=== PATIENT | male | born 1980 | race Caucasian/White ===

== ENCOUNTER 2020-02-01 11:46 | Emergency (ER) | payer MEDICARE ==
--- NOTE | 2020-02-01 13:30 | ED ---
Lower Extremity - HPI Summary HPI Summary: Patient is a 39-year-old female who presents emergency department for left lower leg pain times one week. Patient denies any falls or injuries. Patient with history of lymphoma and follows with cancer center here. Patient denies chest pain shortness of breath. Patient notes mild swelling to left lower leg. Symptoms are moderate in severity. No current modifying factors. - History of Current Complaint Chief Complaint: EDExtremityLower Stated Complaint: SWOLLEN LEG/HAS STAGE 4 CANCER PER PT Time Seen by Provider: 02/01/20 13:07 Pain Intensity: 5 - Allergies/Home Medications Allergies/Adverse Reactions: Allergies Allergy/AdvReac Type Severity Reaction Status Date / Time Penicillins AdvReac Rash Verified 02/01/20 11:54 Home Medications: Home Medications PARoxetine HCL TAB* [Paxil TAB*] 20 mg PO DAILY 07/27/16 [History Confirmed 06/16] clonazePAM TAB(*) [Klonopin TAB(*)] 1 mg PO BID 07/27/16 [History Confirmed 06/16] Acetaminophen TAB* [Tylenol TAB*] 650 mg PO Q6H PRN #0 tab 07/29/16 [Rx Confirmed 10/08/16] Naproxen Sodium [Aleve] 220 mg PO DAILY PRN 10/08/16 [History Confirmed 10/08/16 ] Apixaban* [Eliquis*] 5 mg PO BID #70 tab 02/01/20 [Rx] PMH/Surg Hx/FS Hx/Imm Hx Previously Healthy: Yes Endocrine/Hematology History: Denies: Hx Diabetes Cardiovascular History: Denies: Hx Congestive Heart Failure, Hx Hypertension History: Denies: Hx Renal Disease Musculoskeletal History: Reports: Other Musculoskeletal History - BACK INJURY, R HAND INJURY Neurological History: Reports: Other Neuro Impairments/Disorders - BACK INJURY Psychiatric History: Reports: Hx Anxiety, Hx Depression - Surgical History Surgery Procedure, Year, and Place: appendectomy Infectious Disease History: No Infectious Disease History: Denies: Traveled Outside the [place] in Last 30 Days - Family History Known Family History: Positive: Hypertension, Diabetes - Social History Occupation: Unemployed Lives: With Family Alcohol Use: None Substance Use Type: Reports: Marijuana Substance Use Comment - Amount & Last Used: smoke "once in a while" Hx Tobacco Use: Yes Smoking Status (MU): Current Every Day Smoker Type: Cigarettes Review of Systems Constitutional: Negative Negative: Fever Cardiovascular: Negative Negative: Chest Pain Respiratory: Negative Negative: Shortness Of Breath Positive: Other - pain to left lower leg All Other Systems Reviewed And Are Negative: Yes Physical Exam Triage Information Reviewed: Yes Vital Signs On Initial Exam: Initial Vitals Temp Pulse Resp BP Pulse Ox 98.2 F 91 16 143/94 96 02/01/20 11:51 02/01/20 11:51 02/01/20 11:51 02/01/20 11:51 02/01/20 11:51 Vital Signs Reviewed: Yes Appearance: Positive: Well-Appearing - Patient's answer no acute distress. Family member present. Skin: Positive: Warm, Dry Head/Face: Positive: Normal Head/Face Inspection Eyes: Positive: Normal, EOMI Neck: Positive: Supple Respiratory/Lung Sounds: Positive: Clear to Auscultation, Breath Sounds Present Cardiovascular: Positive: Normal, RRR Musculoskeletal: Positive: Other - Good palpable left pedal pulse. I do not appreciate any edema or erythema. Full range of motion of the knee without erythema or increased warmth. Pain along posterior upper calf behind knee. Neurological: Positive: Normal, CN Intact II-III Psychiatric: Positive: Affect/Mood Appropriate Procedures - Sedation Patient Received Moderate/Deep Sedation with Procedure: No Diagnostics - Vital Signs Vital Signs Temp Pulse Resp BP Pulse Ox 02/01/20 11:51 98.2 F 91 16 143/94 96 - Laboratory Result Diagrams: 02/01/20 13:28 02/01/20 13:28 Lab Statement: Any lab studies that have been ordered have been reviewed, and results considered in the medical decision making process. Lower Extremity Course/Dx - Course Course Of Treatment: Pt. with mild calf tenderness. High risk for DVT. U/S per radiology: IMPRESSION: DEEP VENOUS THROMBOSIS INVOLVING THE POSTERIOR TIBIAL VEINS AND PERONEAL. VEINS. Labs at baseline. Case discussed with pt.'s grocery bagger and she would like Jihan reyna. Discussed results and plan with pt. and he is agreeable. Discussed risk vs benefit of blood thinner. Drug handout given. Will f.u with onc. in 1-2 weeks and return to er for CP or SOB. - Diagnoses Differential Diagnosis/HQI/PQRI: Positive: DVT, Sprain, Strain Provider Diagnoses: DVT (deep venous thrombosis) Discharge ED - Sign-Out/Discharge Documenting (check all that apply): Patient Departure - Discharge Plan Condition: Good Disposition: HOME Prescriptions: Apixaban* [Eliquis*] 5 mg PO BID #70 tab Patient Education Materials: Apixaban (By mouth), Deep Vein Thrombosis (ED) Referrals: Letty Caputo MD [Medical Doctor] - Farooq Choudhury [employer] [Primary Care Provider] - Additional Instructions: Follow up Dr. Caputo as scheduled Take Eliquis as directed Please read Eliquis handout Avoid taking NSAIDS Return to ER for chest pain, shortness of breath or if concerned - Billing Disposition and Condition Condition: GOOD Disposition: Home - Attestation Statements Provider Attestation: I was available for consult. This patient was seen by the BRENDA. The patient was not presented to, seen by, or examined by me. -Becky
[2020-02-01 13:57] LABS: ABS Basophils 0.1 10^3/ul (0-0.2); ABS Lymphocytes 1.4 10^3/ul (1.0-4.8); ABS Monocytes 0.9 10^3/ul (0-0.8); ABS Neutrophils 7.1 10^3/ul (1.5-7.7); Albumin 4.1 g/dL (3.2-5.2); Albumin/Globulin Ratio 1.6 (1-3); BUN/Creatinine Ratio 6.5 (8-20); Calcium 9.3 mg/dL (8.6-10.3); EGFR African American 91.6 (>60); EGFR Non-African American 75.7 (>60); Eosinophil % 0.5 %; Globulin 2.6 g/dL (2-4); Hematocrit 53 % (42-52); Hemoglobin 18.8 g/dL (14.0-18.0); Lymphocyte % 14.9 %; Mean Corpuscular HGB Conc 35 g/dL (31-36); Mean Corpuscular Hemoglobin 34 pg (27-31); Mean Corpuscular Volume 97 fL (80-94); Mean Platelet Volume 7.9 fL (7.4-10.4); Nucleated Red Blood Cells % 0.1; Platelet Count 219 10^3/uL (150-450); Potassium 4.9 mmol/L (3.5-5.0); Red Blood Count 5.51 10^6 /uL (4.18-5.48); Red Cell Distribution Width 15 % (10-15); Total Bilirubin 0.6 mg/dL (0.2-1.0); Total Protein 6.7 g/dL (6.4-8.9); White Blood Count 9.5 10^3/uL (3.5-10.8)
[2020-02-01 14:02] LABS: Activated Partial Thrombo Time 35.6 seconds (26.0-38.0); INR 1.01 (0.82-1.09)
[2020-02-01 15:55] VITALS: BP 136/107
== END 2020-02-01 15:54 | disposition home or self-care (01) ==
LOC: ED 11:46
DX: I82.442 Acute embolism and thrombosis of left tibial vein (principal); I82.452 Acute embolism and thrombosis of left peroneal vein; M79.662 Pain in left lower leg; Z79.01 Long term (current) use of anticoagulants; Z79.899 Other long term (current) drug therapy; F41.9 Anxiety disorder, unspecified; F32.9 Major depressive disorder, single episode, unspecified; F17.210 Nicotine dependence, cigarettes, uncomplicated; Z88.0 Allergy status to penicillin
CPT/HCPCS: 36415; 80053; 85025; 85610; 85730; 99282